=== PATIENT | female | born 1985 | race Two or more races ===

== ENCOUNTER 2024-01-10 06:29 | Day surgery (SDC) | payer MEDICAID ==
[~2024-01-10] VITALS: Ht 160 cm; Wt 76.2 kg
[~2024-01-10 06:29] MED LIST: FLEC1TAB PO; METO25TA5 PO
[2024-01-10] MEDS ORDERED: ONDANSETRON HCL 4 MG/2 ML VIAL IV ONE (07:30)
[2024-01-10] MEDS ORDERED: fentaNYL CITRATE 100 MCG/2 ML VL ONE (08:05)
[2024-01-10] MEDS ORDERED: MIDAZOLAM HCL 2MG/2ML 2ml VIAL (1mg/ml) ONE (08:05)
[2024-01-10] MEDS ORDERED: LIDOCAINE VISCOUS 2% 15ML UD ONE (08:06)
[2024-01-10] MEDS: LIDOCAINE VISCOUS 2% 15ML UD MT PRN (08:15)
[2024-01-10] MEDS: MIDAZOLAM HCL 2MG/2ML 2ml VIAL (1mg/ml) IV ONE (08:15)
[2024-01-10] MEDS: fentaNYL CITRATE 100 MCG/2 ML VL IV ONE (08:15)
[2024-01-10 08:25] VITALS: BP 109/62; PULSE 97; RESP 13; O2SAT 97
[2024-01-10 08:40] VITALS: BP 103/86; PULSE 73; RESP 13; O2SAT 99
[2024-01-10 08:55] VITALS: BP 100/58; PULSE 90; RESP 12; O2SAT 97
[2024-01-10 09:11] VITALS: BP 98/65; PULSE 81; RESP 13; O2SAT 97
== END 2024-01-10 09:25 | disposition home or self-care (01) ==
LOC: CATH 06:29
PROVIDERS: ATTEND Internal Medicine Cardiovascular Disease
DX: I49.9 Cardiac arrhythmia, unspecified (principal); I37.1 Nonrheumatic pulmonary valve insufficiency; Z88.8 Allergy status to other drugs, medicaments and biological substances; Z88.0 Allergy status to penicillin
CPT/HCPCS: 93312; J2250; J3010; J7040; 99152